=== PATIENT | female | born 1990 | race Two or more races ===

== ENCOUNTER 2025-01-10 07:13 | Emergency (ER) | payer OTHER ==
[~2025-01-10] VITALS: Ht 157.5 cm; Wt 75.7 kg
[2025-01-10] MEDS ORDERED: PRENATA CHEWAB1 EACH PO (07:21)
[2025-01-10 09:22] LABS: BASO % 0.4 % (0.1-1.2); EOS # 0.08 (0.04-0.54); EOS % 1.7 % (0.7-7.0); HEMATOCRIT 38.2 % (34.1-44.9); LYMPH # 1.84 (1.18-3.74); LYMPH % 39.3 % (19.3-53.1); MEAN CORPUSCULAR HEMOGLOBIN 31.5 pg (25.6-32.2); MONO # 0.53 (0.24-0.82); MONO % 11.3 % (4.7-12.5); NEUT # 2.19 (1.56-6.13); NEUT % 46.9 % (34.0-71.1); PLATELET COUNT 275 K/uL (163-369); RED BLOOD COUNT 4.13 M/uL (3.93-5.22); RED CELL DISTRIBUTION WIDTH 11.9 % (11.6-14.4)
[2025-01-10 09:45] LABS: URINE APPEARANCE Clear; URINE BILIRRUBIN Negative (NEGATIVE); URINE BLOOD Negative; URINE COLOR Yellow; URINE GLUCOSE Negative (NEGATIVE); URINE KETONE Negative (NEGATIVE); URINE LEUKOCYTE Negative; URINE NITRATE Negative; URINE PROTEIN Negative (NEGATIVE)
[2025-01-10 09:47] LABS: URINE BACTERIA 305.9 uL (0.0-1933); URINE EPITHELIAL CELLS 10.5 uL (0.0-38.8); URINE RBC 6.4 uL (0.0-20.8); URINE WBC 9.6 uL (0.0-23.2)
== END 2025-01-10 13:31 | disposition home or self-care (01) ==
LOC: ER 07:42
PROVIDERS: General Practice
DX: Z34.90 Encounter for supervision of normal pregnancy, unspecified, unspecified trimester (principal); Z3A.01 Less than 8 weeks gestation of pregnancy; R10.12 Left upper quadrant pain

== ENCOUNTER 2025-02-07 07:00 | Day surgery (SDC) | payer OTHER ==
[2025-02-03 12:20] LABS: BASO % 0.4 % (0.1-1.2); EOS # 0.08 (0.04-0.54); EOS % 1.5 % (0.7-7.0); LYMPH # 1.69 (1.18-3.74); LYMPH % 30.8 % (19.3-53.1); MEAN PLATELET VOLUME 10.60 fl (9.4-12.4); MONO # 0.55 (0.24-0.82); MONO % 10.0 % (4.7-12.5); NEUT # 3.14 (1.56-6.13); NEUT % 57.1 % (34.0-71.1); RED CELL DISTRIBUTION WIDTH 12.4 % (11.6-14.4)
[2025-02-03 12:21] LABS: URINE APPEARANCE Clear; URINE BILIRRUBIN Negative (NEGATIVE); URINE BLOOD Negative; URINE COLOR Yellow; URINE GLUCOSE Negative (NEGATIVE); URINE KETONE Negative (NEGATIVE); URINE LEUKOCYTE Trace; URINE NITRATE Negative; URINE PROTEIN Negative (NEGATIVE); URINE UROBILINOGEN 0.2 E.U./dl
[2025-02-03 12:22] LABS: URINE BACTERIA 1575.5 uL (0.0-1933); URINE EPITHELIAL CELLS 39.8 uL (0.0-38.8); URINE RBC 3.9 uL (0.0-20.8); URINE WBC 11.9 uL (0.0-23.2)
[2025-02-03 12:28] LABS: URINE CAST 0.00 uL (0.0-1.40)
[2025-02-03 13:08] LABS: INR 1.01
[2025-02-03 13:34] LABS: ALT/SGPT 37.0 U/L (12-78); AST/SGOT 15.0 U/L (15-37); BILIRUBIN TOTAL 1.02 mg/dL (0.3-1.2); BUN CREA RATIO 12.0 (7.0-25.0); CREATININE SERUM 0.57 mg/dL (0.55-1.02); GFR 122.92; GLOBULINA 3.4 G/DL (2.4-3.5); GLUCOSE FASTING 85.0 mg/dL (65-100); OSMOLALITY SERUM 277.0 MOSM/KG (275-295)
[~2025-02-07 07:00] MED LIST: PRENATA CHEWAB1 EACH PO
[2025-02-07] MEDS ORDERED: POVIDONE-IODINE 118 ML BOTT TOP ONE (14:45)
== END 2025-02-07 20:10 | disposition home or self-care (01) ==
LOC: CIR.AMB 07:00
PROVIDERS: ATTEND Obstetrics & Gynecology
DX: O02.1 Missed abortion (principal)

== ENCOUNTER 2025-06-09 10:16 | Emergency (ER) | payer OTHER ==
[~2025-06-09] VITALS: Ht 157.5 cm; Wt 74.8 kg
[2025-06-09] MEDS ORDERED: ONDANSETRON HCL 2 MG/ML VIAL IV ONE (12:00)
[2025-06-09] MEDS ORDERED: FAMOTIDINE/PF 20 MG/2 ML VIAL IV ONE (12:00)
[2025-06-09] MEDS ORDERED: LACTOBACILLUS ACIDOPHILUS 1 CAP CAP PO ONE ×2 (12:00→12:20)
[2025-06-09] MEDS ORDERED: 0.9 % SODIUM CHLORIDE 1,000 ML IV ONE (12:00)
[2025-06-09] MEDS ORDERED: ONDANSETRON HCL 2 MG/ML VIAL ONE (12:20)
[2025-06-09] MEDS ORDERED: FAMOTIDINE/PF 20 MG/2 ML VIAL ONE (12:21)
[2025-06-09 12:52] LABS: BASO % 0.2 % (0.1-1.2); EOS # 0.00 (0.04-0.54); EOS % 0.0 % (0.7-7.0); LYMPH # 0.59 (1.18-3.74); LYMPH % 4.6 % (19.3-53.1); MEAN PLATELET VOLUME 11.20 fl (9.4-12.4); MONO # 0.38 (0.24-0.82); MONO % 3.0 % (4.7-12.5); NEUT # 11.77 (1.56-6.13); NEUT % 92.0 % (34.0-71.1); RED CELL DISTRIBUTION WIDTH 11.6 % (11.6-14.4)
[2025-06-09 13:21] LABS: ALT/SGPT 51.0 U/L (12-78); AST/SGOT 17.0 U/L (15-37); BILIRUBIN TOTAL 1.01 mg/dL (0.3-1.2); BUN CREA RATIO 16.0 (7.0-25.0); CREATININE SERUM 0.74 mg/dL (0.55-1.02); GFR 90.95; GLOBULINA 4.2 G/DL (2.4-3.5); GLUCOSE FASTING 111.0 mg/dL (65-100); OSMOLALITY SERUM 282.0 MOSM/KG (275-295)
[2025-06-09 14:08] LABS: URINE APPEARANCE Cloudy; URINE BILIRRUBIN Negative (NEGATIVE); URINE BLOOD Negative; URINE COLOR Yellow; URINE GLUCOSE Negative (NEGATIVE); URINE LEUKOCYTE Trace; URINE NITRATE Negative; URINE PROTEIN 30 (NEGATIVE); URINE UROBILINOGEN 0.2 E.U./dl
[2025-06-09 14:12] LABS: URINE BACTERIA 1990.8 uL (0.0-1933); URINE EPITHELIAL CELLS 15.9 uL (0.0-38.8); URINE RBC 14.5 uL (0.0-20.8); URINE WBC 27.9 uL (0.0-23.2)
[2025-06-09 14:13] LABS: COVID-19 AG NEGATIVE (NEGATIVE)
[2025-06-09 14:23] LABS: URINE CAST 0.73 uL (0.0-1.40); URINE KETONE 80 (NEGATIVE)
[2025-06-09] MEDS ORDERED: METRONIDAZOLE500 MG PO (15:21)
[2025-06-09] MEDS ORDERED: CIPRO500 MG PO (15:21)
[2025-06-09] MEDS ORDERED: PROTONIX20 MG PO (15:21)
[2025-06-09] MEDS ORDERED: PEPCID40 MG PO (15:21)
[2025-06-09] MEDS ORDERED: INTESTINEX680 M1 PO (15:21)
== END 2025-06-09 16:15 ==
LOC: ER 10:17
PROVIDERS: General Practice
DX: K52.89 Other specified noninfective gastroenteritis and colitis (principal); R11.2 Nausea with vomiting, unspecified; K29.70 Gastritis, unspecified, without bleeding; R10.13 Epigastric pain